=== PATIENT | male | born 2005 | race Caucasian/White ===

== ENCOUNTER 2023-07-27 18:41 | Emergency (ER) | payer OTHER, SELFPAY ==
[2023-07-27 19:07] VITALS: BP 109/59; PULSE 82; TEMP 36.6; O2SAT 99; BMI 21.0
[2023-07-27 19:46] LABS: Strep A DNA Probe* NOT DETECTED (Not Detectd)
[2023-07-27 19:59] LABS: PCR FLU A Negative PCR FLU A (Negative); PCR FLU B Negative PCR FLU B (Negative); PCR RSV Negative PCR RSV (Negative); SARS PCR* Negative SARS-CoV-2 (Negative)
--- NOTE | 2023-07-27 21:07 | ED_ITS ---
HPI - General Adult General Date Seen: 07/27/23 Chief complaint: Sore Throat Stated complaint: coughed up blood Time Seen by Provider: 07/27/23 21:00 History of Present Illness HPI narrative: 18-year-old male with a history of hearing loss (wears a hearing aid in his left ear) but otherwise healthy, occasional smoker, who presents to the ER today for evaluation of cough, nosebleed, sore throat. Symptoms began a week ago when he was moving at insulation in his attic. It sounds like he breathed in some of the insulation and this started triggering his cough. He has had a cough all week long. No high fever. No shortness of breath. He did have cough up some white material and also little bit of bloody material. After that he also began having nose bleeds from his nostrils. No extensive blood loss from the nose bleeds. He does not take any blood thinners. No headache. He has had a sore throat and some pain with swallowing. No change in his voice. No trouble breathing. He has no history of diabetes or immune problems. Related Data Previous Rx's Medication Instructions Recorded benzonatate 100 mg capsule 100 mg PO TID PRN cough #10 caps 07/27/23 ibuprofen 600 mg tablet 600 mg PO Q8H PRN #14 tabs 07/27/23 Allergies Allergy/AdvReac Type Severity Reaction Status Date / Time No Known Drug Allergies Allergy Verified 07/27/23 19:06 [facility] Social History Smoking Status: Never smoker Exam Narrative: Exam Narrative: Constitutional: Appears well-developed and well-nourished. Alert. Conversant . he is a bit hard of hearing and has a couple of times for me to clarify what I say but overall we are able to communicate clearly.. Non toxic. HENT: Head: Atraumatic. Nose: Nose normal. Right ear: TM, canal, mastoid, pinnae normal. Left ear: TM, canal, mastoid, pinnae are normal. Mouth/Throat: Oral mucosa is clear and moist. no trismus. Pharynx erythematous. No vesicles. Tonsils not enlarged. No exudates. Uvula midline. Normal phonation. No trismus. Airway widely patent. Tonsils symmetric. No tonsillar enlargement, or exudate. Eyes: Conjunctivae normal. EOM normal. Pupils equal, round, and reactive to light. No scleral icterus. Neck: Normal range of motion. Neck supple. No tracheal deviation present. Cardiovascular: Normal rate, regular rhythm. No gallop. No friction rub. No murmur heard. Symmetric radial artery pulses Pulmonary/Chest: Effort normal. No stridor. No respiratory distress. No wheezes. No rales. No rhonchi . No tenderness. Abdominal: Soft. No HSM. No distension. No mass. No tenderness. No rebound. No guarding. Musculoskeletal: RUE: Normal range of motion. No tenderness. No deformity LUE: Normal range of motion. No tenderness. No deformity RLE: Normal range of motion. No edema. No tenderness. No deformity LLE: Normal range of motion. No edema. No tenderness. No deformity Lymph: He has 1 nontender right posterior cervical lymph node. Neurological: Alert and oriented to person, place, and time. Normal strength. CN II-VII intact. No sensory deficit. GCS eye subscore is 4. GCS verbal subscore is 5. GCS motor subscore is 6. Normal coordination Skin: Skin is warm and dry. No rash noted. No pallor. Normal capillary refill. Psychiatric: Normal mood. Normal affect. Polite. Const: Vital Signs, click to edit/add: Vital Signs - 24 hr 07/27/23 19:07 Temperature 97.9 F Pulse Rate [Pulse Oximeter] 82 Blood Pressure [Ri ght Upper Arm] 109/59 L Pulse Oximetry 99 Oxygen Delivery Me thod Room Air Course Vital Signs Vital signs: Initial Vital Signs Temperature 97.9 F 07/27/23 19:07 Temperature Source Temporal Artery Scan 07/27/23 19:07 Pulse Rate 82 07/27/23 19:07 Pulse Rhythm Regular 07/27/23 19:07 Blood Pressure 109/59 L 07/27/23 19:07 Blood Pressure Mean 75 07/27/23 19:07 Blood Pressure Position Sitting 07/27/23 19:07 Pulse Oximetry 99 07/27/23 19:07 Oxygen Delivery Method Room Air 07/27/23 19:07 Vital Signs Temperature 97.9 F 07/27/23 19:07 Pulse Rate 82 07/27/23 19:07 Blood Pressure 109/59 L 07/27/23 19:07 Pulse Oximetry 99 07/27/23 19:07 Oxygen Delivery Method Room Air 07/27/23 19:07 Temperature 97.9 F 07/27/23 19:07 Pulse Rate 82 07/27/23 19:07 Blood Pressure 109/59 L 07/27/23 19:07 Pulse Oximetry 99 07/27/23 19:07 Oxygen Delivery Method Room Air 07/27/23 19:07 Medical Decision Making MDM Narrative Medical decision making narrative: This patient presents for evaluation of cough, sore throat, nosebleed. This is consistent with an upper respiratory tract infection. Viral testing negative for COVID, influenza, RSV. Strep test is negative as well.. There is no signs at this point of serious bacterial infection such as OM, RPA, epiglottitis, CHARGER OPERATOR, strep pharyngitis, pneumonia, sinusitis, meningitis, bacteremia, serious bacterial infection. Given clear lungs, fever curve, no hypoxia and no respiratory distress I do not feel a CXR is indicated at this point as the probability of bacterial pneumonia is very unlikely. Suspect that his bloody sputum is probably from his nose bleeds. There are no gastrointestinal symptoms at this point and no signs of dehydration. Close followup with primary care physician is indicated. It turns out that he has been under dosing his acetaminophen. He has not been taking any ibuprofen. Will send in prescriptions for cough medicine (Tessalon) and ibuprofen 600 mg tablets to get him on the right dose medications to help him feel better. Recommend an additional 2-3 day waiting. See the symptoms get better. At this point no christine ar indication for antibiotics. Return to ED for fever > 103, protracted vomiting, confusion, or other worsening. Lab Data Labs: Lab Results 07/27/23 Range/Units 19:11 SARS-CoV-2 (PCR) Negative SARS-CoV-2 (Negative) Influenza Type A (PCR) Negative PCR FLU A (Negative) Influenza Type B (PCR) Negative PCR FLU B (Negative) RSV (PCR) Negative PCR RSV (Negative) Group A Strep DNA NOT DETECTED (Not Detectd) Discharge Plan Discharge Clinical Impression: Epistaxis, Cough, Pharyngitis Patient Disposition: Home, Self-Care Condition: Stable Instructions: Upper Respiratory Infection (ED) Additional Instructions: As we discussed, please come back to the ER right away if you have worsening sore throat, worsening cough or trouble breathing, high fever, or any concerns. If you are not completely improved within the next 3 days, please recheck with your doctor, or come back to the ER to be rechecked. Prescriptions: New ibuprofen 600 mg tablet 600 mg PO Q8H PRNQty: 14 0RF benzonatate 100 mg capsule 100 mg PO TID PRN (Reason: cough) Qty: 10 0RF Stand Alone Forms: [employer] Info Instructions
== END 2023-07-27 21:53 | disposition home or self-care (01) ==
LOC: ED 21:32
PROVIDERS: Emergency Provider Emergency Medicine
DX: J02.9 Acute pharyngitis, unspecified (principal); R04.0 Epistaxis
CPT/HCPCS: 87631; 87651; 99282; 99283

== ENCOUNTER 2024-08-12 10:25 | Emergency (ER) | payer OTHER, SELFPAY ==
--- OUTSIDE RECORDS SUMMARY | 2024-08-12 10:27 | XMS_ITS | CCD ---
Author Organization Unknown Care Team Providers Care Malt House Kiln Operator Name Role Phone Power Wheelchair Mechanic, [place] Primary Care Provider Unava ilable Unavailable Chronic Care Management Unavaila ble Summary Purpose DataExchange Insurance Providers Payer name Policy type / Coverage type Covered green party ID Effective Begin Date Effective End Date [employer] ([facility]) Commercial Insurance [id number] Unknown Unknown Family History Family History data not found Medication Administered No Medication Administered data Reason For Visit No Reason For Visit data
[2024-08-12 10:35] VITALS: BP 127/78; PULSE 108; RESP 18; TEMP 38.9; O2SAT 96; BMI 24.2
--- NOTE | 2024-08-12 11:00 | ED.GENADULT ---
HPI - General Adult General Chief complaint: Sore Throat Stated complaint: fever/cough Time Seen by Provider: 08/12/24 10:48 History of Present Illness HPI narrative: Patient is a 19-year-old gentleman who comes in today with pharyngitis and fever. He has had no nausea no vomiting no chest pain no cough no shortness of breath. He has had no recent sick exposures. Patient wears hearing aids is chronically hearing impaired with no changes in his auditory acuity. He has had no rashes known stiff neck no skin breakdown. No recent travel or sick contacts. Related Data Previous Rx's ?Medication ?Instructions ?Recorded benzonatate 100 mg capsule 100 mg PO TID PRN cough #10 caps 07/27/23 ibuprofen 600 mg tablet 600 mg PO Q8H PRN #14 tabs 07/27/23 Allergies Allergy/AdvReac Type Severity Reaction Status Date / Time No Known Drug Allergies Allergy Verified 08/12/24 10:39 Review of Systems Status of ROS: Reports: 10 or more systems reviewed and unremarkable except as noted in History and below PFSH PFS Social History Smoking Status: Never smoker How often do you have a drink containing alcohol: never AUDIT-C Alcohol total score: 0 Non-prescribed substance use: denies use Exam Narrative: Exam Narrative: EXAM GENERAL: Patient appears comfortable and well. EYES: No scleral icterus. ENT: Tympanic membranes and oropharynx normal. THYROID: no thyroid nodules or thyromegaly. LYMPH: No supraclavicular or cervical lymphadenopathy. SKIN: Visible skin seen during exam normal or with benign process only. EXT: No dependent lower extremity pedal edema. HEART: Regular rate and rhythm with no murmurs, rubs, or gallops. LUNGS: Clear to auscultation bilaterally with no crackles or wheezes. ABD: Soft, non tender, non distended. PSYCH: Good eye contact, speech is not pressured. Const: Vital Signs, click to edit/add: Vital Signs - 24 hr 08/12/24 10:35 Temperature 102.0 F H Pulse Rate [Left P ulse Oximeter] 108 H Respiratory Rate 18 Blood Pressure [Ri ght Upper Arm] 127/78 Pulse Oximetry 96 Oxygen Delivery Me thod Room Air Course Course ED Course: Patient seen and examined. Tylenol given. Triple swab and rapid strep pending. Vital Signs Vital signs: Initial Vital Signs Temperature 102.0 F H 08/12/24 10:35 Temperature Source Oral 08/12/24 10:35 Pulse Rate 108 H 08/12/24 10:35 Respiratory Rate 18 08/12/24 10:35 Blood Pressure 127/78 08/12/24 10:35 Blood Pressure Mean 94 08/12/24 10:35 Blood Pressure Position Sitting 08/12/24 10:35 Pulse Oximetry 96 08/12/24 10:35 Oxygen Delivery Method Room Air 08/12/24 10:35 Vital Signs Temperature 102.0 F H 08/12/24 10:35 Pulse Rate 108 H 08/12/24 10:35 Respiratory Rate 18 08/12/24 10:35 Blood Pressure 127/78 08/12/24 10:35 Pulse Oximetry 96 08/12/24 10:35 Oxygen Delivery Method Room Air 08/12/24 10:35 Temperature 102.0 F H 08/12/24 10:35 Pulse Rate 108 H 08/12/24 10:35 Respiratory Rate 18 08/12/24 10:35 Blood Pressure 127/78 08/12/24 10:35 Pulse Oximetry 96 08/12/24 10:35 Oxygen Delivery Method Room Air 08/12/24 10:35 Medications Administered Medications: Discontinued Medications Generic Name Dose Route Start Last Admin Trade Name Freq PRN Reason Stop Dose Admin Acetaminophen 1,000 mg 08/12/24 11:33 08/12/24 11:40 Acetaminophen 500 Mg Tablet PO 08/12/24 11:34 1,000 mg ONCE ONE Administration Medical Decision Making [facility] Narrative Medical decision making narrative: Patient is a 19-year-old gentleman comes in with fever and pharyngitis. He tests negative for strep. Does have a fever of 1021 we did give him Tylenol. His influenza B is positive and did place him on Tamiflu for the next 5 days. Plenty of rest plenty fluids Tylenol and Motrin follow-up at his primary physician as needed. Lab Data Labs: Lab Results 08/12/24 Range/Units 10:46 SARS-CoV-2 (PCR) Negative SARS-CoV-2 (Negative) Influenza Type A (PCR) Negative PCR FLU A (Negative) Influenza Type B (PCR) POSITIVE PCR FLU B A (Negative) RSV (PCR) Negative PCR RSV (Negative) Group A Strep DNA NOT DETECTED (Not Detectd) Discharge Plan Discharge Clinical Impression: Influenza Patient Disposition: Home, Self-Care Condition: Stable Instructions: Influenza (ED) Additional Instructions: Tamiflu as directed Tylenol Motrin Rest Fluids Follow-up with your doctor as needed. Activity Level: No Restrictions Discharge Diet: Regular Prescriptions: No Action ibuprofen 600 mg tablet 600 mg PO Q8H PRNQty: 14 0RF benzonatate 100 mg capsule 100 mg PO TID PRN (Reason: cough) Qty: 10 0RF Follow Up/Referrals: Provider,Not a Local [Primary Care Provider] - Stand Alone Forms: [facility] Info Instructions
--- OUTSIDE RECORDS SUMMARY | 2024-08-12 11:01 | XMS_ITS | CCD ---
Author Organization Unknown Care Team Providers Care Certified Nursing Assistant Instructor Name Role Phone Program And Research Coordinator, [place] Primary Care Provider Unava ilable Unavailable Chronic Care Management Unavaila ble Summary Purpose DataExchange Insurance Providers Payer name Policy type / Coverage type Covered republican ID Effective Begin Date Effective End Date [employer] ([facility]) Commercial Insurance [id number] Unknown Unknown Family History Family History data not found Medication Administered No Medication Administered data Reason For Visit No Reason For Visit data
--- OUTSIDE RECORDS SUMMARY | 2024-08-12 11:01 | XMS_ITS | CCD ---
Author Organization Unknown Care Team Providers Care Magnetic Healer Name Role Phone Tile Mechanic Helper, [place] Primary Care Provider Unava ilable Unavailable Chronic Care Management Unavaila ble Summary Purpose DataExchange Insurance Providers Payer name Policy type / Coverage type Covered alliance party ID Effective Begin Date Effective End Date [employer] ([facility]) Commercial Insurance [id number] Unknown Unknown Family History Family History data not found Medication Administered No Medication Administered data Reason For Visit No Reason For Visit data
[2024-08-12 11:34] LABS: PCR FLU A Negative PCR FLU A (Negative); PCR FLU B POSITIVE PCR FLU B (Negative); PCR RSV Negative PCR RSV (Negative); SARS PCR* Negative SARS-CoV-2 (Negative)
[2024-08-12] MEDS: ACETAMINOPHEN 500 MG TABLET 1000 MG PO (11:40)
[2024-08-12 11:51] LABS: Strep A DNA Probe* NOT DETECTED (Not Detectd)
[2024-08-12 12:04] VITALS: PULSE 97; RESP 18; TEMP 38; O2SAT 97
== END 2024-08-12 12:06 | disposition home or self-care (01) ==
PROVIDERS: Emergency Provider Internal Medicine
DX: J10.1 Influenza due to other identified influenza virus with other respiratory manifestations (principal)
CPT/HCPCS: 87631; 87651; 99283; A9270

== ENCOUNTER 2024-10-02 18:30 | Emergency (ER) | payer OTHER, SELFPAY ==
[2024-10-02 18:47] VITALS: BP 132/82; PULSE 83; RESP 18; TEMP 36.6; O2SAT 97; BMI 24.1
--- NOTE | 2024-10-02 18:56 | ED.GENADULT ---
HPI - General Adult General Chief complaint: Extremity Pain/Injury, Upper Stated complaint: hurt left shoulder Time Seen by Provider: 10/02/24 18:49 History of Present Illness HPI narrative: Pt here for eval after horse fell onto L shoulder. C/ o L shoulder pain, worsens with movement. Denies numbness /tingling down arm, previous surgery to affected shoulder. 19-year-old young man presenting to the emergency department along with family with complaint of intense left shoulder pain. Apparently fell off a horse onto this left shoulder. No prior injuries. It appears that there was not actually any prior surgery done to the shoulder. No numbness tingling distally. No noted injury to neck back head. No abdominal pain or difficulty breathing. Related Data Home Medications ?Medication ?Instructions ?Recorded ?Confirmed No Known Home Medications 10/02/24 10/02/24 Allergies Allergy/AdvReac Type Severity Reaction Status Date / Time No Known Drug Allergies Allergy Verified 10/02/24 18:46 Review of Systems Status of ROS: Reports: 6 or more systems reviewed and unremarkable except as noted in History and below [facility] Social History Smoking Status: Never smoker How often do you have a drink containing alcohol: never AUDIT-C Alcohol total score: 0 Non-prescribed substance use: denies use Exam Narrative: Exam Narrative: Pleasant. Hard of hearing. Affected speech. Clearly uncomfortable and favoring this left arm. No apparent neurovascular deficits with good distal pulses. Clearly prominent distal clavicle on the left versus the right shoulder. Pain to palpation about this AC joint. Clavicle self appears to be intact. There is generalized swelling about the left shoulder. No pain to palpation of the scapula. Head is atraumatic. Neck supple nontender. Back nontender. Const: Vital Signs, click to edit/add: Vital Signs - 24 hr 10/02/24 18:47 Temperature 97.8 F Pulse Rate [Pulse Oximeter] 83 Respiratory Rate 18 Blood Pressure [Ri ght Upper Arm] 132/82 Pulse Oximetry 97 Oxygen Delivery Me thod Room Air Documenting provider has reviewed patient's vital signs: yes Course Vital Signs Vital signs: Initial Vital Signs Temperature 97.8 F 10/02/24 18:47 Temperature Source Temporal Artery Scan 10/02/24 18:47 Pulse Rate 83 10/02/24 18:47 Pulse Rhythm Regular 10/02/24 18:47 Respiratory Rate 18 10/02/24 18:47 Blood Pressure 132/82 10/02/24 18:47 Blood Pressure Mean 98 10/02/24 18:47 Blood Pressure Position Sitting 10/02/24 18:47 Pulse Oximetry 97 10/02/24 18:47 Oxygen Delivery Method Room Air 10/02/24 18:47 Vital Signs Temperature 97.8 F 10/02/24 18:47 Pulse Rate 83 10/02/24 18:47 Respiratory Rate 18 10/02/24 18:47 Blood Pressure 132/82 10/02/24 18:47 Pulse Oximetry 97 10/02/24 18:47 Oxygen Delivery Method Room Air 10/02/24 18:47 Temperature 97.8 F 10/02/24 18:47 Pulse Rate 72 10/02/24 20:24 Respiratory Rate 16 10/02/24 20:24 Blood Pressure 128/68 10/02/24 20:24 Pulse Oximetry 97 10/02/24 18:47 Oxygen Delivery Method Room Air 10/02/24 18:47 Medications Administered Medications: Discontinued Medications Generic Name Dose Route Start Last Admin Trade Name Freq PRN Reason Stop Dose Admin Ibuprofen 600 mg 10/02/24 18:59 10/02/24 19:13 Ibuprofen 200 Mg Tablet PO 10/02/24 19:00 600 mg ONCE ONE Administration Morphine Sulfate 4 mg 10/02/24 18:59 10/02/24 19:14 Morphine 4 Mg/Ml Inj IM 10/02/24 19:00 4 mg ONCE ONE Administration Medical Decision Making [facility] Narrative Medical decision making narrative: Sent for x-rays to confirm what I would suspect is an AC joint/shoulder separation. Appears to be neurovascularly intact. Would appreciate something acting sooner for pain per family encouragement. Discussed options. Given injection of morphine and oral ibuprofen. Shoulder x-ray by my independent read confirms AC joint separation. Humeral head appears to be properly located. No fractures noted. Radiology over-read below Indication: FALL OFF HORSE, SHOULDER PAIN Technique: Three views of the left shoulder Comparison: None Findings/Impression: Superior displacement of the distal left clavicle by approximately 1 bone width consistent a type 3 acromioclavicular joint injury. Otherwise, the remainder of the examination is unremarkable. Dictated by David Triplett MD @ 10/02/2024 7:31:32 PM I did call discussed with orthopedics on-call. I suspect there might be possibility of surgical intervention. Will be seen in follow-up in orthopedic clinic Placed in arm sling. See patient discharge plan for further discussion Take this 6 in Moiz wrap with you. It might be helpful to hold on ice packs. I would like you to ice 2 - 3 times daily over the next few days. Can take up to 600 mg of ibuprofen or up to 1000 mg of acetaminophen per dose. These can also be combined. Alternative to the ibuprofen might be up to 325 mg of naproxen 2 times daily. Prescribing some [place] for pain if needed from [facility]. This is an opiate. Keep in mind that each tablet of [place] contains 325 mg of acetaminophen. I did contact Orthopedics. Call them to schedule for sometime next week for follow-up recommendations. They may call you sometime tomorrow. I suppose if you do not hear from them tomorrow, contact them on . Phone number [phone] Discharge Plan Discharge Clinical Impression: shoulder, Separation of AC joint Patient Disposition: Home w/ Parent or Adult Condition: Improved Additional Instructions: Take this 6 in Moiz wrap with you. It might be helpful to hold on ice packs. I would like you to ice 2 - 3 times daily over the next few days. Can take up to 600 mg of ibuprofen or up to 1000 mg of acetaminophen per dose. These can also be combined. Alternative to the ibuprofen might be up to 325 mg of naproxen 2 times daily. Prescribing some [place] for pain if needed from [facility]. This is an opiate. Keep in mind that each tablet of [place] contains 325 mg of acetaminophen. I did contact Orthopedics. Call them to schedule for sometime next week for follow-up recommendations. They may call you sometime tomorrow. I suppose if you do not hear from them tomorrow, contact them on . Phone number [phone] Prescriptions: No Action No Known Home Medications Follow Up/Referrals: Provider,Not a Local [Primary Care Provider, Family Practice] Stand Alone Forms: [employer] Info Instructions
--- NOTE | 2024-10-02 18:59 | CRLHL7_ITS ---
For Patients: As a result of the Cures Act, medical imaging exams and procedure reports are released immediately into your electronic medical record. You may view this report before your referring provider. If you have questions, please contact your health care provider. Indication: FALL OFF HORSE, SHOULDER PAIN Technique: Three views of the left shoulder Comparison: None Findings/Impression: Superior displacement of the distal left clavicle by approximately 1 bone width consistent a type 3 acromioclavicular joint injury. Otherwise, the remainder of the examination is unremarkable. Dictated by David Triplett MD @ 10/02/2024 7:31:32 PM (Electronically Signed)
[2024-10-02] MEDS: IBUPROFEN 200 MG TABLET 600 MG PO (19:13)
[2024-10-02] MEDS: MORPHINE 4 MG/ML INJ IM (19:14)
[2024-10-02 20:24] VITALS: BP 128/68; PULSE 72; RESP 16
== END 2024-10-02 20:25 | disposition home or self-care (01) ==
PROVIDERS: Emergency Provider Family Medicine
DX: S43.102A Unspecified dislocation of left acromioclavicular joint, initial encounter (principal); V80.010A Animal-rider injured by fall from or being thrown from horse in noncollision accident, initial encounter
CPT/HCPCS: 73030; 96372; 99284; A9270; J2270